=== PATIENT | male | born 2000 | race Two or more races ===

== ENCOUNTER 2025-07-16 20:48 | Emergency (ER) | payer BC ==
[~2025-07-16] VITALS: Ht 170.2 cm; Wt 55.6 kg
[2025-07-16 21:05] VITALS: O2SAT 95
[2025-07-16] MEDS: SODIUM CHLORIDE 0.9% 1,000 ML IV ONE (21:06)
--- NOTE | 2025-07-16 21:12 | ED.PDOC ---
History of Present Illness HPI Comments 25-year-old male who came to ER for alcohol intoxication/seizures. Patient brought in by his brother. Was last seen normal 2 hours ago. Was seen lying face down in his room, with a laceration at the back of his head. Possible seizure episode. Patient brought to the ER, patient had another seizure episode while at the triage area, lasting approximately 20 seconds. Patient is a daily alcohol drinker, last drank alcohol this afternoon. Brother states patient has stopped taking his medications (Librium?) REVIEW OF SYSTEMS: General: No fever, no chills, or fatigue (+) intoxicated with alcohol HEENT: No sore throat, no earache, no congestion, no neck pain. Cardiac: No chest pain. No palpitations. Lungs: No shortness of breath, no cough. GI: No nausea, no vomiting, no diarrhea, no constipation, no abdominal pain : No dysuria, frequency, or urgency. No hematuria. Musculoskeletal: No joint pain , no joint swelling, no extremity edema. Skin: No rash, no itching. (+) laceration Neuro: No headache, no dizziness, no weakness, (+) seizure EXAM: General: Awake, alert and oriented. No acute distress. Skin: Skin in warm, dry , slightly jaundice HEENT: Hematoma left occipital scalp Conjunctivae are clear without exudates or hemorrhage. Sclera is non-icteric. EOM are intact. No signs of nystagmus. Eyelids are normal in appearance without swelling or lesions. Oral mucosa is pink and moist Neck: The neck is supple with normal range of motion. No JVD. Cardiac: Heart rate and rhythm are normal. No murmurs, gallops, or rubs are auscultated. Respiratory: No signs of respiratory distress. Lung sounds are clear in all lobes bilaterally without rales, rhonchi, or wheezes. Abdominal: Abdomen is soft, non-tender without distention. Bowel sounds are present and normoactive in all four quadrants. Extremities: Upper and lower extremities are atraumatic in appearance without deformity or edema. Neurological: The patient is awake, alert and oriented to person, place, and month and year, with normal speech. Speech is clear. There is no facial asymmetry. Moving all extremities, no upper or lower extremity drift. GCS 15. Chief Complaint: ETOH Time Seen by MD: 21:11 Reviewed Notes: Nurses Notes Allergies: Coded Allergies: NO KNOWN ALLERGIES (Unverified , 06/04/10) Information Source: Patient, Relative (Sibling) Mode of Arrival: Ambulatory Past Medical History PAST MEDICAL HISTORY: Seizures Surgical History: Denies all surgeries Family History Family History: Reviewed,noncontributory to illness Social History Smoker: Non-Smoker Alcohol: Heavy Drugs: Denies Drug Use Lives In: Home Was a procedure done? Was a procedure done?: Yes Sedation Sedation?: No, Yes Informed consent obtained: Yes Laceration Repair : Anesthetic: Nothing Laceration Repair Prep: Saline Laceration Repair Wound Comple: epidermis/dermis repair Laceration Repair: [place] (#2) Notes 2 CM LEFT OCCIPITAL SCALP LACERATION Differential Dx Considerations may include: Differential diagnoses considered include but are not limited to epilepsy/seizure disorder, [employer] infection, electrolyte disturbance, CVA, TBI, drug toxicity or overdose, hypoxia, hypertensive emergency, brain tumor/mass, syncope, movement disorder, other X-Ray, Labs, Meds, VS Vital Signs Date Time Temp Pulse Resp B/P (MAP) Pulse Ox O2 Delivery O2 Flow Rate FiO2 07/16/25 23:46 98.0 103 13 105/72 (83) 95 98.0 07/16/25 22:00 102 16 115/80 (92) 99 07/16/25 21:05 95 Room Air* 0 21 07/16/25 20:57 98.1 111 12 94/57 (69) 95 98.1 07/16/25 20:50 97.5 109 24 94/57 82 97.5 Lab Test 07/16/25 21:13 07/16/25 20:57 Range/Units White Blood Count 12.0 H 4.4-10.8 10^3/uL Red Blood Count 5.31 4.5-5.90 10^6/uL Hemoglobin 17.1 13.5-17.5 g/dL Hematocrit 49.4 41.0-53.0 % Mean Corpuscular Volume 93.1 80.0-100.0 fL Mean Corpuscular Hemoglobin 32.2 H 28.0-32.0 pg Mean Corpuscular Hemoglobin Concent 34.6 32.0-36.0 g/dL Red Cell Distribution Width 14.0 11.8-14.3 % Platelet Count 138 L 140-450 10^3/uL Mean Platelet Volume 9.5 6.9-10.8 fL Neutrophils (%) (Auto) 74.2 37.0-80.0 % Lymphocytes (%) (Auto) 13.5 10.0-50.0 % Monocytes (%) (Auto) 11.9 0.0-12.0 % Eosinophils (%) (Auto) 0.1 0.0-7.0 % Basophils (%) (Auto) 0.3 0.0-2.0 % Neutrophils # (Auto) 8.9 H 1.6-8.6 10 ^3/uL Lymphocytes # (Auto) 1.6 0.4-5.4 10 ^3/uL Monocytes # (Auto) 1.4 H 0-1.3 10 ^3/uL Eosinophils # (Auto) 0 0-0.8 10 ^3/uL Basophils # (Auto) 0 0-0.2 10 ^3/uL Nucleated Red Blood Cells 0.1 % Sodium Level 132 L 136-145 mmol/L Potassium Level 2.3 *L 3.5-5.1 mmol/L Chloride Level 60 L 98-107 mmol/L Carbon Dioxide Level 28 20-31 mmol/L Anion Gap 44 H 5-15 Blood Urea Nitrogen 31 H 9-23 mg/dL Creatinine 2.71 H 0.700-1.30 mg/dL Glomerular Filtration Rate Calc 32 >90 mL/min BUN/Creatinine Ratio 11.4 10.0-20.0 Serum Glucose 157 H 74-106 mg/dL Calcium Level 10.8 H 8.7-10.4 mg/dL Total Bilirubin 7.2 H 0.2-1.0 mg/dL Aspartate Amino Transferase (AST) 843 H 13-40 U/L Alanine Aminotransferase (ALT) 389 H 7-40 U/L Alkaline Phosphatase 245 H 46-116 U/L Total Protein 8.4 H 5.7-8.2 g/dL Albumin 4.7 3.2-4.8 g/dL Plasma/Serum Blood Alcohol 305.3 H <10 mg/dL POC Glucose 188 H 70-106 mg/dl Current Medications Medications (Trade) Dose Ordered Sig/Griffin Route Start Time Stop Time Status Last Admin Sodium Chloride 1,000 ml @ 1,000 mls/hr Q1H ONCE IV 07/16/25 21:00 07/16/25 21:59 DC 07/16/25 21:06 Levetiracetam 100 ml @ 400 mls/hr ONCE ONCE IV 07/16/25 21:00 07/16/25 21:14 DC 07/16/25 21:25 Lorazepam (Ativan Inj) 1 mg ONCE ONCE IV 07/16/25 21:00 07/16/25 21:01 DC 07/16/25 21:23 Ondansetron HCl (Zofran) 4 mg ONCE ONCE IV 07/16/25 21:30 07/16/25 21:31 DC 07/16/25 21:33 Pantoprazole Sodium (Protonix) 40 mg ONCE ONCE IV 07/16/25 21:45 07/16/25 21:46 DC 07/16/25 21:59 Potassium Chloride 100 ml @ 50 mls/hr Q2H IV 07/16/25 23:30 07/17/25 03:29 07/16/25 23:43 EXAM: CT HEAD WITHOUT CONTRAST INDICATION: Head injury new seizure TECHNIQUE: CT of the head without intravenous contrast. Radiation Dose Information: CT Dose: CTDI volume is 60.72 mGy. Dose-length product is 2148.37 mGy*cm The dose indicators for CT are the volume Computed Tomography (CT) Dose Index (CTDIvol) and the Dose Length Product (DLP), and are measured in units of mGy and mGy-cm, respectively. These indicators are not patient dose, but values generated from the CT scanner acquisition factors. The report includes radiation exposure data for exposures received during this examination. COMPARISON: None FINDINGS: Ill-defined subcortical hyperdensity within the right frontal lobe. No mass effect. No focal hematoma. No midline shift or hydrocephalus. The ventricles, sulci and cisterns are age appropriate. The parker-white differentiation is intact. Patchy periventricular and subcortical white matter hypoattenuation is nonspecific but may be related to small vessel ischemic disease. The visualized paranasal sinuses and mastoid air cells are clear. The surrounding soft tissues and osseous structures are unremarkable. IMPRESSION: Ill-defined subcortical hyperdensity in the right frontal lobe, possibly calcification although difficult to exclude trace hemorrhage. Contrast-enhanced MRI is recommended for further assessment. Time of 1ST Reevaluation: 21:05 Reevaluation 1ST: Unchanged Patient Education/Counseling: Other (Need for transfer) Family Education/Counseling: No Family Present SEPSIS Sepsis Screen Date sepsis recognized/suspect: Jul 16, 2025 Time Sepsis recognized/suspect: 2053 Recent Procedure: No On Antibiotic Therapy: No Respiratory Rate >20: No Heart Rate >90: No Temp<36 C (96.8 F) or >38.3 C: No SBP <90 or MAP <65 mmHG: No New Acute Mental Status Change: No Is the patient on CPAP, BIPAP,: No Physician Orders Drug Screen (07/16/25 20:58) Urinalysis (07/16/25 20:58) Seizure Precautions (07/16/25 ) Titrate Oxygen (07/16/25 20:58) Oxygen (07/16/25 ) Continous Pulse Oximetry (07/16/25 20:58) Saline Lock (07/16/25 20:58) Manager Digital (07/16/25 ) Head Without Contrast (07/16/25 21:00) Cleanse Wound With Mild Soap A (07/16/25 21:05) Cleanse Wound With Ns (07/16/25 21:05) Stool Occult Blood (07/16/25 21:43) Angio Head/Neck (07/16/25 23:04) 2 Large Bore Ivs (20mg Or Larg (07/16/25 23:04) Neuro Checks Q2hrs Q1HR (07/16/25 23:04) Bed Rest With Hob At 30-45 Deg (07/16/25 23:04) Npo (Nothing By Mouth) Diet (07/17/25 Breakfast) Fall Precautions Initiated (07/16/25 23:04) Potassium Chl 20meq/100ml (07/16/25 23:30) Imaging Transfer Request (07/16/25 23:32) Vital Signs Date Time Temp Pulse Resp B/P (MAP) Pulse Ox O2 Delivery O2 Flow Rate FiO2 07/16/25 23:46 98.0 103 13 105/72 (83) 95 98.0 07/16/25 22:00 102 16 115/80 (92) 99 07/16/25 21:05 95 Room Air* 0 21 07/16/25 20:57 98.1 111 12 94/57 (69) 95 98.1 07/16/25 20:50 97.5 109 24 94/57 82 97.5 Laboratory Tests Test 07/16/25 21:13 White Blood Count 12.0 10^3/uL (4.4-10.8) H Medications Medications Dose Ordered Sig/Griffin Route Start Time Stop Time Status Last Admin Dose Admin Levetiracetam 100 ml @ 400 mls/hr ONCE ONCE IV 07/16/25 21:00 07/16/25 21:14 DC 07/16/25 21:25 Lorazepam 1 mg ONCE ONCE IV 07/16/25 21:00 07/16/25 21:01 DC 07/16/25 21:23 Ondansetron HCl 4 mg ONCE ONCE IV 07/16/25 21:30 07/16/25 21:31 DC 07/16/25 21:33 Pantoprazole Sodium 40 mg ONCE ONCE IV 07/16/25 21:45 07/16/25 21:46 DC 07/16/25 21:59 Potassium Chloride 100 ml @ 50 mls/hr Q2H IV 07/16/25 23:30 07/17/25 03:29 07/16/25 23:43 Sodium Chloride 1,000 ml @ 1,000 mls/hr Q1H ONCE IV 07/16/25 21:00 07/16/25 21:59 DC 07/16/25 21:06 Departure 1 Departure Time of Disposition: 23:19 Impression: Primary Impression: Cerebral parenchymal hemorrhage Additional Impressions: Alcohol abuse Seizure Disposition: 02 SHORT TERM HOSPITAL Condition: Serious Comments 25-year-old male who presents to the emergency department after being found down on ground with head injury. He had a proximally 20 s tonic-clonic seizure witnessed by triage nurse on arrival to the emergency department. IV Keppra, Ativan, IV fluids administered. Discussed with Dr. Patel, Neurology who recommends transfer for neurosurgery consultation. Discussed with Dr. Whitehead who accepts patient for transfer to [facility]. Patient remained neurologically intact in ED observation. Critical Care Note Critical Care Time?: No Stability Stability form required: No Heart Score Heart Score: Heart Score Response (Comments) Value History N/A 0 EKG N/A 0 Age N/A 0 Risk Factors N/A 0 Troponin N/A 0 Total 0 I personally scribed for JEOVANY HAZEL MD ([email or web address]) on 07/16/25 at 21:12. Electronically submitted by Gurmeet Aguilar ([email or web address]). I personally scribed for JEOVANY HAZEL MD ([email or web address]) on 07/16/25 at 22:41. Electronically submitted by Gurmeet Aguilar ([email or web address]). JEOVANY HAZEL MD Jul 16, 2025 21:12
[2025-07-16 21:22] LABS: Hematocrit 49.4 % (41.0-53.0); Hemoglobin 17.1 g/dL (13.5-17.5); Mean Corpuscular Hemoglobin 32.2 pg (28.0-32.0); Mean Corpuscular Volume 93.1 fL (80.0-100.0); Nucleated Red Blood Cells % 0.1 %
[2025-07-16] MEDS: LORazepam 2MG/ML-1ML VIAL IV ONE (21:23)
[2025-07-16] MEDS: ONDANSETRON HCL 4 MG/2 ML VIAL ONE (21:24)
[2025-07-16] MEDS: levETIRAcetam 1000 mg/100ml 100 ML IV ONE (21:25)
[2025-07-16] MEDS: ONDANSETRON HCL 4 MG/2 ML VIAL IV ONE (21:33)
[2025-07-16 21:39] LABS: Albumin 4.7 g/dL (3.2-4.8); Anion Gap 44 (5-15); BUN/Creatinine Ratio 11.4 (10.0-20.0); Carbon Dioxide 28 mmol/L (20-31)
[2025-07-16] MEDS: PANTOPRAZOLE 40 MG/10 ML VIAL INJ IV ONE (21:59)
--- NOTE | 2025-07-16 22:38 | DVH ---
EXAM: CT HEAD WITHOUT CONTRAST INDICATION: Head injury new seizure TECHNIQUE: CT of the head without intravenous contrast. Radiation Dose Information: CT Dose: CTDI volume is 60.72 mGy. Dose-length product is 2148.37 mGy*cm The dose indicators for CT are the volume Computed Tomography (CT) Dose Index (CTDIvol) and the Dose Length Product (DLP), and are measured in units of mGy and mGy-cm, respectively. These indicators are not patient dose, but values generated from the CT scanner acquisition factors. The report includes radiation exposure data for exposures received during this examination. COMPARISON: None FINDINGS: Ill-defined subcortical hyperdensity within the right frontal lobe. No mass effect. No focal hematoma. No midline shift or hydrocephalus. The ventricles, sulci and cisterns are age appropriate. The parker-white differentiation is intact. Patchy periventricular and subcortical white matter hypoattenuation is nonspecific but may be related to small vessel ischemic disease. The visualized paranasal sinuses and mastoid air cells are clear. The surrounding soft tissues and osseous structures are unremarkable. IMPRESSION: Ill-defined subcortical hyperdensity in the right frontal lobe, possibly calcification although difficult to exclude trace hemorrhage. Contrast-enhanced MRI is recommended for further assessment.
[2025-07-16 22:50] LABS: Alanine Aminotransferase 389 U/L (7-40); Alkaline Phosphatase 245 U/L (46-116); Bilirubin, Total 7.2 mg/dL (0.2-1.0); Blood Urea Nitrogen 31 mg/dL (9-23); Calcium 10.8 mg/dL (8.7-10.4); Chloride 60 mmol/L (98-107); Glucose 157 mg/dL (74-106); Sodium 132 mmol/L (136-145); Total Protein 8.4 g/dL (5.7-8.2)
[2025-07-16 22:53] LABS: Potassium 2.3 mmol/L (3.5-5.1)
[2025-07-16] MEDS: IOHEXOL 350 MG/ML 100ML IJ ONE (23:19)
[2025-07-16] MEDS: POTASSIUM CHL 20MEQ/100ML 100 ML IV SCH (23:43)
[2025-07-16 23:46] VITALS: BP 105/72; PULSE 103; RESP 13; TEMP 98; O2SAT 95
--- NOTE | 2025-07-17 00:01 | DVH ---
INDICATION: Right parenchymal hemorrhage COMPARISON: CT HEAD WITHOUT CONTRAST on DOS: 07/16/25 TECHNIQUE: CTA head without and with intravenous contrast. CTA neck with intravenous contrast. 3D image postprocessing was performed on a dedicated workstation and images were used for interpretation and reporting. Radiation Dose Information: CT Dose: CTDI volume is 22.2 mGy. Dose-length product is 866.92 mGy*cm Contrast: 100 cc Omnipaque 350. FINDINGS: CTA head: There is normal enhancement of the visualized distal internal carotid, anterior and middle cerebral arteries. There is a normal anterior communicating artery complex. There are bilateral posterior communicating arteries. The vertebral, basilar, cerebellar and posterior cerebral arteries are within normal limits. The early parenchymal enhancement is grossly unremarkable. The visualized intracranial venous structures are grossly unremarkable. CTA neck: The visualized thoracic aortic arch and proximal great vessels are unremarkable. The left common, internal and external carotid arteries are within normal limits. The right common, internal and external carotid arteries are within normal limits. The cervical segments of the right and left vertebral arteries are within normal limits. The limited visualized lung apices are clear. The surrounding soft tissues and osseous structures are otherwise unremarkable. IMPRESSION: No evidence of hemodynamically significant intracranial stenosis, proximal occlusion or aneurysm. No evidence of hemodynamically significant cervical stenosis or dissection. No vascular malformation associated with the ill-defined hyperdensity in the right frontal lobe. All CT scans at this medical facility are performed using dose modulation techniques as appropriate to a performed exam including the following: Automated exposure control was utilized; adjustment of the MA and/or KV according to patient size; and use of iterative reconstruction technique.
== END 2025-07-17 00:17 | disposition short-term general hospital (02) ==
LOC: ER 20:48
DX: S06.2X0A Diffuse traumatic brain injury without loss of consciousness, initial encounter (principal); R56.9 Unspecified convulsions; F10.129 Alcohol abuse with intoxication, unspecified; X58.XXXA Exposure to other specified factors, initial encounter; Y93.89 Activity, other specified; Y92.89 Other specified places as the place of occurrence of the external cause; Y99.8 Other external cause status; Y90.8 Blood alcohol level of 240 mg/100 ml or more
CPT/HCPCS: 12001; 36415; 70450; 70496; 70498; 80053; 80320; 82947; 85025; 96365; 96367; 96375; 99285; A4649; J1953; J2060; J2405; J2470; J3480; J7030; Q9967; 82962